=== PATIENT | female | born 2000 | race Caucasian/White ===

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

== ENCOUNTER 2019-06-07 15:09 | Emergency (ER) | payer OTHER ==
[~2019-06-07] VITALS: Ht 172.7 cm; Wt 106.8 kg
[~2019-06-07 15:09] MED LIST changes: +RITALIN 5MG5 MG/TAB PO; +ZOFRAN ODT4 MG PO
[2019-06-07 15:13] VITALS: TEMP 98.1
[2019-06-07 16:15] LABS: BASO % 0.5 % (0.0-2.0); EOS # 0.2 (0.0-0.7); EOS % 2.5 % (0-4.0); GRAN # 3.9 (1.4-6.5); GRAN % 49.1 % (42.2-75.2); HEMATOCRIT 40.8 % (35.0-45.0); HEMOGLOBIN 14.1 g/dl (12.0-15.0); LYMPH # 3.3 (1.2-3.4); LYMPH % 41.7 % (20.0-51.0); MEAN CELL VOLUME 84 fl (80.0-95.0); MEAN CORPUSCULAR HEMOGLOBIN 29 pg (26.0-32.0); MEAN CORPUSCULAR HGB CONC 35 g/dl (33.0-37.0); MEAN PLATELET VOLUME 9.5 fl (7.4-10.4); MONO # 0.5 (0.1-0.6); MONO % 6.1 % (1.7-9.3); PLATELET COUNT 233 K/mm3 (130-400); RED BLOOD COUNT 4.87 M/mm3 (4.10-5.30); REDCELL DISTRIBUTION WIDTH-CV 11.7 % (11.5-14.5)
[2019-06-07 16:16] LABS: PROTHROMBIN TIME 11.8 SECONDS (9.7-12.8)
[2019-06-07 16:19] LABS: PARTIAL THROMBOPLASTIN TIME 37.3 SECONDS (26.0-37.0)
[2019-06-07 17:30] VITALS: BP 117/69; PULSE 88
== END 2019-06-07 17:30 | disposition home or self-care (01) ==
LOC: COL.ER 15:09
PROVIDERS: Emergency Medicine
DX: K92.2 Gastrointestinal hemorrhage, unspecified (principal); F90.9 Attention-deficit hyperactivity disorder, unspecified type